=== PATIENT | male | born 1970 ===

== ENCOUNTER 2017-10-17 11:18 | Day surgery (SDC) | payer BC, MEDICARE, OTHER ==
[~2017-10-17] VITALS: Ht 188 cm; Wt 92.8 kg
[~2017-10-17 11:18] MED LIST: ACET500; AMOCLA875 PO; AMOX500 PO; ASCO500; ASCO500 PO; BP MED?; CALCAVITDA PO; CALPHO600; CARB200; CARB200ER; CARB50; CHOL10002 PO; CYAN100 PO; CYCL10; CYCL10 PO; DOCU100 PO; DOCUSATE 100 MG; ENDOCET; ENDOCET PO; ESOM20 PO; EZET10-20; EZET10-20 PO; Exforge 5-1601 EACH PO; FAMO20; FENT25TP TOP; FERR325; FEXOFENADINE PO; FURO20; FURO40; GABA300 PO; HYDACE5; LANS30EC; LEVE500 PO; LEVSOD100; LEVSOD100 PO; LEVSOD150; LEVSOD150 PO; LEVSOD50; LIDO5TP; LIDO5TP TOP; METO100ER; METO100ER PO; METO50ER; METO50ER PO; OLME20; OLME20 PO; OMEP20ER; OSTEO BI FLEX; OSTEO BIFLEX PO; OXYACE5C; OXYACE5T; OXYACE5T PO; OXYC15ER PO; OXYC5 PO; PENVK500 PO; POTA10T; POTCHL10ER; PREG75 PO; PROM25 PO; RXPENVK250 PO; RXPROM25 PO; VITAMIN A PO; VITAMIN D PO; VYTORIN; Vitamin C100 M1 PO; ZINC PO; ZINC15 PO; Zanaflex4 MG PO; [UNRECOGNIZED DRUG - OTHER]; [UNRECOGNIZED DRUG - OTHER] PO; [UNRECOGNIZED DRUG - REMARK]
== END 2017-10-17 13:18 | disposition home or self-care (01) ==
LOC: ORSCSDS 11:18
PROVIDERS: Internal Medicine Gastroenterology
PROC: 0DBK8ZX Excision of Ascending Colon, Via Natural or Artificial Opening Endoscopic, Diagnostic (ICD-10-PCS; principal; 2017-10-17 12:45)
PROC: 0DBH8ZX Excision of Cecum, Via Natural or Artificial Opening Endoscopic, Diagnostic (ICD-10-PCS; principal; 2017-10-17 12:45)
DX: R10.32 Left lower quadrant pain (principal); D12.0 Benign neoplasm of cecum; D12.2 Benign neoplasm of ascending colon; K57.30 Diverticulosis of large intestine without perforation or abscess without bleeding; K64.8 Other hemorrhoids; Z79.899 Other long term (current) drug therapy
CPT/HCPCS: 88305; J7120

== ENCOUNTER → 2019-08-16 | Outpatient (CLI) | payer BC, MEDICARE, OTHER ==
[2019-08-16 15:10] LABS: Appearance, Urine Clear (Clear); Bilirubin, Urine Neg (Neg); Blood, Urine Neg (Neg); Color, Urine Yellow (P-Yellow); Glucose Qualitative, Urine Neg (Neg); Ketones, Urine Neg (Neg); Leukocyte Esterase, Urine Neg (Neg); Nitrite, Urine Neg (Neg); Protein, Urine 1+ (Neg); Urobilinogen, Urine NORM (Normal)
== END | disposition home or self-care (01) ==
LOC: LAB SHORT 13:57 → LAB 13:57
PROVIDERS: Internal Medicine Hematology & Oncology
DX: R10.32 Left lower quadrant pain (principal)
CPT/HCPCS: 81003

== ENCOUNTER 2020-12-02 18:12 | Emergency (ER) | payer BC, MEDICARE, OTHER ==
[~2020-12-02] VITALS: Ht 188 cm; Wt 95.2 kg
[2020-12-02 18:51] LABS: BASOPHILS ABSOLUTE AUTO 0.05 K/mm3 (0.00-0.23); BASOPHILS PERCENT AUTO 1 % (0-2); EOSINOPHILS ABSOLUTE AUTO 0.35 K/mm3 (0.00-0.68); EOSINOPHILS PERCENT AUTO 5 % (0-6); Hematocrit 49.6 % (37.0-53.0); Hemoglobin 17.3 g/dL (13.5-17.5); IMMATURE GRAN ABSOLUTE AUTO 0.01 K/mm3 (0.00-0.10); IMMATURE GRAN PERCENT AUTO 0 % (0-1); LYMPHOCYTES ABSOLUTE AUTO 2.55 K/mm3 (0.84-5.20); LYMPHOCYTES PERCENT AUTO 37 % (21-46); MONOCYTES ABSOLUTE AUTO 0.54 K/mm3 (0.16-1.47); MONOCYTES PERCENT AUTO 8 % (4-13); Mean Corpuscular HGB 30.7 pg (26.0-34.0); Mean Corpuscular HGB Conc 34.9 g/dL (31.5-36.5); Mean Corpuscular Volume 88 fL (80-100); Mean Platelet Volume 11.5 fL (9.1-12.4); NEUTROPHILS ABSOLUTE AUTO 3.31 K/mm3 (1.96-9.15); NEUTROPHILS PERCENT AUTO 49 % (41-73); NRBC ABSOLUTE 0.05 K/mm3 (0.00-0.02); NRBC Auto 0.7 /100 WBC (0.0-0.2); Platelet Count 182 K/mm3 (150-400); RDW Coefficient Variation 11.9 % (11.7-14.2); RDW Standard Deviation 38.3 fL (35.1-46.3); Red Blood Cell Count 5.63 M/mm3 (4.30-5.90); White Blood Cell Count 6.81 K/mm3 (4.00-11.30)
[2020-12-02 19:15] LABS: Alanine Aminotransfer (ALT/SGP 55 U/L (12-78); Albumin/Globulin Ratio 1.1 (0.8-1.8); Alk Phos 76 U/L (50-136); Anion Gap 4 mmol/L (6-16); Aspartate Aminotrans (AST/SGOT 20 U/L (12-37); Bilirubin, Total 0.6 mg/dL (0.1-1.0); Blood Urea Nitrogen 10 mg/dL (8-24); Bun/Creatinine Ratio 9.6 (12.0-20.0); CO2, Blood 29 mmol/L (21-32); Calcium, Blood 9.3 mg/dL (8.5-10.1); Chloride, Blood 109 mmol/L (98-108); Creatinine, Blood 1.04 mg/dL (0.60-1.20); Globulin, Blood 3.7 g/dL (2.2-4.0); Glomerular Filtration Rate >60 (60-); Glucose, Blood 127 mg/dL (70-99); Potassium, Blood 3.4 mmol/L (3.5-5.5); Sodium, Blood 142 mmol/L (136-145); Total Protein, Blood 7.7 g/dL (6.4-8.2)
[2020-12-02 20:38] LABS: Source, Urine Clean Catch
[2020-12-02 20:42] LABS: Appearance, Urine Clear (Clear); Bilirubin, Urine Neg (Neg); Blood, Urine Neg (Neg); Color, Urine Yellow (P-Yellow); Glucose Qualitative, Urine Neg (Neg); Ketones, Urine Neg (Neg); Leukocyte Esterase, Urine Neg (Neg); Nitrite, Urine Neg (Neg); Protein, Urine Neg (Neg); Specific Gravity, Urine 1.005 (1.003-1.022); Urobilinogen, Urine NORM (Normal)
== END 2020-12-02 23:51 | disposition home or self-care (01) ==
LOC: ER 18:12
PROVIDERS: Physician Assistant
DX: R10.32 Left lower quadrant pain (principal); R19.7 Diarrhea, unspecified; E78.5 Hyperlipidemia, unspecified; K21.9 Gastro-esophageal reflux disease without esophagitis; G40.909 Epilepsy, unspecified, not intractable, without status epilepticus; I12.9 Hypertensive chronic kidney disease with stage 1 through stage 4 chronic kidney disease, or unspecified chronic kidney disease; N18.9 Chronic kidney disease, unspecified; Z88.5 Allergy status to narcotic agent; Z88.8 Allergy status to other drugs, medicaments and biological substances; Z79.899 Other long term (current) drug therapy
CPT/HCPCS: 36415; 74177; 80053; 81003; 85025; 96374-59; 99284-25; J2270; J7030; Q9967

== ENCOUNTER 2022-12-16 12:10 | Day surgery (SDC) | payer MEDICARE, OTHER ==
[~2022-12-16] VITALS: Ht 188 cm; Wt 92.8 kg
[~2022-12-16 12:10] MED LIST changes: +ONDA4ODT MM
[2022-12-16] MEDS ORDERED: LEVE500 (12:38)
[2022-12-16] MEDS ORDERED: HYDR1TAB94 (12:38)
[2022-12-16] MEDS ORDERED: ALBU2.5V5 (12:38)
[2022-12-16] MEDS ORDERED: OMEP20ER (12:39)
[2022-12-16] MEDS ORDERED: XYZAL5 MG (12:39)
[2022-12-16] MEDS ORDERED: TAMS.4ER (12:39)
--- NOTE | 2022-12-16 14:49 | NUR ---
12/16/22 1449 Bebe, Radha 4% LIDOCAINE NEBULIZER ADMINISTERED PER ORDER FROM DR GANNON.
[2022-12-16 16:08] VITALS: BP 108/85
== END 2022-12-16 16:09 | disposition home or self-care (01) ==
LOC: ORSCSDS 12:10
PROVIDERS: Internal Medicine Gastroenterology
PROC: 0DB98ZX Excision of Duodenum, Via Natural or Artificial Opening Endoscopic, Diagnostic (ICD-10-PCS; principal; 2022-12-16 13:45)
PROC: 0D757ZZ Dilation of Esophagus, Via Natural or Artificial Opening (ICD-10-PCS; principal; 2022-12-16 13:45)
PROC: 0DB78ZX Excision of Stomach, Pylorus, Via Natural or Artificial Opening Endoscopic, Diagnostic (ICD-10-PCS; principal; 2022-12-16 13:45)
PROC: 0DBL8ZX Excision of Transverse Colon, Via Natural or Artificial Opening Endoscopic, Diagnostic (ICD-10-PCS; principal; 2022-12-16 13:45)
PROC: 0DB58ZX Excision of Esophagus, Via Natural or Artificial Opening Endoscopic, Diagnostic (ICD-10-PCS; principal; 2022-12-16 13:45)
DX: R13.10 Dysphagia, unspecified (principal); R11.0 Nausea; R10.30 Lower abdominal pain, unspecified; K59.09 Other constipation; D12.3 Benign neoplasm of transverse colon; Z86.010 Personal history of colon polyps; I10 Essential (primary) hypertension; E78.5 Hyperlipidemia, unspecified; G47.33 Obstructive sleep apnea (adult) (pediatric); K21.9 Gastro-esophageal reflux disease without esophagitis; Z79.899 Other long term (current) drug therapy; K57.30 Diverticulosis of large intestine without perforation or abscess without bleeding; K64.8 Other hemorrhoids; E03.9 Hypothyroidism, unspecified; G40.909 Epilepsy, unspecified, not intractable, without status epilepticus
CPT/HCPCS: J2001; J2704; J7120; Q9968

== ENCOUNTER → 2023-11-01 | Outpatient (CLI) | payer MEDICARE, OTHER ==
[~2023-11-01] MED LIST changes: +ALBU2.5V5; +HYDR1TAB94; +LEVE500; +TAMS.4ER; +XYZAL5 MG
[2023-11-01 14:29] LABS: U Amphetamine Screen Not Detected; U Barbituate Screen Not Detected; U Benzodiazapine Screen Not Detected; U Buprenorphine Screen Not Detected; U Cannabinoids Screen Not Detected; U Cocaine Screen Not Detected; U Methadone Screen Not Detected; U Methamphetamine Screen Not Detected; U Opiates Screen DETECTED; U Phencyclidine Screen Not Detected
[2023-11-01 14:30] LABS: U Oxycodone Screen Not Detected
== END ==
LOC: LAB 10:50 → LAB SHORT 10:50
PROVIDERS: Internal Medicine Hematology & Oncology
DX: M54.10 Radiculopathy, site unspecified (principal)

== ENCOUNTER → 2023-12-08 | Outpatient (CLI) | payer MEDICARE, OTHER | END | disposition home or self-care (01) | LOC: LAB 13:39 → LAB SHORT 13:39 | DX: Z51.81 Encounter for therapeutic drug level monitoring (principal); Z79.899 Other long term (current) drug therapy ==

== ENCOUNTER → 2024-02-07 | Outpatient (CLI) | payer MEDICARE, OTHER ==
[2024-02-07 15:34] LABS: U Amphetamine Screen Not Detected; U Barbituate Screen Not Detected; U Benzodiazapine Screen Not Detected; U Buprenorphine Screen Not Detected; U Cannabinoids Screen Not Detected; U Cocaine Screen Not Detected; U Methadone Screen Not Detected; U Methamphetamine Screen Not Detected; U Opiates Screen DETECTED; U Oxycodone Screen Not Detected; U Phencyclidine Screen Not Detected
== END ==
LOC: LAB SHORT 12:25 → LAB 12:25
PROVIDERS: Internal Medicine Hematology & Oncology
DX: Z51.81 Encounter for therapeutic drug level monitoring (principal); Z79.899 Other long term (current) drug therapy

== ENCOUNTER → 2024-02-15 | Outpatient (CLI) | payer MEDICARE, OTHER | LOC: LAB 09:19 → LAB SHORT 09:19 | DX: B35.1 Tinea unguium (principal); L60.2 Onychogryphosis | CPT/HCPCS: 88305; 88312 ==

== ENCOUNTER → 2024-07-16 | Outpatient (CLI) | payer MEDICARE, OTHER ==
[2024-07-16 13:09] LABS: Source, Urine Voided
[2024-07-16 14:25] LABS: Appearance, Urine Clear (Clear); Bilirubin, Urine Neg (Neg); Blood, Urine Neg (Neg); Color, Urine Yellow (P-Yellow); Glucose Qualitative, Urine Neg (Neg); Ketones, Urine Neg (Neg); Leukocyte Esterase, Urine 1+ (Neg); Nitrite, Urine Neg (Neg); Protein, Urine Neg (Neg); Urobilinogen, Urine NORM (Normal)
[2024-07-16 14:34] LABS: Bacteria Few /hpf; Calcium Oxalate Crystals Rare /hpf; Red Blood Cells, Urine 0-2 /hpf (0-2); Squamous Epithelial Cells Not Seen /hpf (Few)
[2024-07-16 14:35] LABS: Mucus Light (0-Heavy)
[2024-07-16 14:48] LABS: U Amphetamine Screen Not Detected; U Barbituate Screen Not Detected; U Benzodiazapine Screen Not Detected; U Buprenorphine Screen Not Detected; U Cannabinoids Screen Not Detected; U Cocaine Screen Not Detected; U Methadone Screen Not Detected; U Methamphetamine Screen Not Detected; U Opiates Screen DETECTED; U Oxycodone Screen Not Detected; U Phencyclidine Screen Not Detected
== END | disposition home or self-care (01) ==
LOC: LAB 13:06 → LAB SHORT 13:06
PROVIDERS: Internal Medicine Hematology & Oncology
DX: R30.0 Dysuria (principal); Z79.899 Other long term (current) drug therapy
CPT/HCPCS: 81001; 87086